=== PATIENT | male | born 1940 | race Caucasian/White ===

== ENCOUNTER 2017-10-27 11:31 | Observation (INO) | payer MEDICARE, OTHER ==
[2017-10-27 12:13] LABS: #Basophils 0.1 thou/uL (0.0-0.2); #Eosinphils 0.1 thou/uL (0.0-0.7); #Lymphocytes 2.4 thou/uL (1.20-3.40); #Monocytes 0.8 thou/uL (0.11-0.59); #Neutrophils 6.7 thou/uL (1.40-6.50); %Basophils 0.6 % (0.0-1.0); %Eosinophils 1.3 % (0.0-10.0); %Lymphocytes 23.8 % (21.0-51.0); %Monocytes 7.8 % (0.0-10.0); %Neutrophils 66.6 % (42.0-75.0); Hemoglobin 16.5 g/dL (14.0-18.0); Mean Corpuscular HGB CONC 32.2 g/dL (32.0-36.0); Mean Corpuscular Hemoglobin 30.1 pg (27.0-31.0); Mean Corpuscular Volume 93.3 fl (80.0-94.0); Mean Platelet Volume 7.1 fL (7.4-10.4); Platelet Count 239 thou/uL (130-400); RBC Distribution Width 12.7 % (11.5-14.5); Red Blood Cell (RBC) Count 5.49 mill/uL (4.70-6.10); White Blood Cell (WBC) Count 10.1 thou/uL (4.8-10.8)
[2017-10-27 12:34] LABS: Anion Gap 14 mmol/L (10-20); BUN (Urea Nitrogen) 21 mg/dL (8.4-25.7); Calc. Creatinine Clearance 51 mL/min (70-130); Calcium 9.8 mg/dL (7.8-10.44); Carbon Dioxide 25 mmol/L (23-31); Chloride 104 mmol/L (98-107); Estimated GFR-MDRD 47; Glucose 111 mg/dL (83-110); Potassium 4.3 mmol/L (3.5-5.1); Sodium 139 mmol/L (136-145)
[2017-10-27 16:10] VITALS: BMI 27.2
[2017-10-27] MEDS ORDERED: CEFAZOLIN/Water 2 GM/20 ML SYRINGE ONE (17:13)
[2017-10-27] MEDS ORDERED: Midazolam HCl 2 mg/2 ml Vial ONE (17:33)
[2017-10-27] MEDS ORDERED: Gentamicin 80 MG/2 ML VIAL ONE (17:33)
[2017-10-27] MEDS ORDERED: CEFAZOLIN 1 GM VIAL ONE (17:33)
[2017-10-27] MEDS ORDERED: Guaifenesin DM 100-10/5 ML UDCUP PO PRN (18:51)
[2017-10-27] MEDS: Ipratropium Oral Inhaler (200 INHALATIONS) INH SCH (18:58)
--- NOTE | 2017-10-27 19:44 | RAD ---
CHEST ONE VIEW 10/27/17 HISTORY: Post cardiac device placement. COMPARISON: None. FINDINGS: There are patchy opacities throughout the right upper lobe. No pneumothorax is appreciated. A dual le ad pacer is in place. IMPRESSION: Extensive patchy opacities in the right upper lobe. This may represent infection or aspiration. Camila hurtado recommended. POS: [facility]
--- NOTE | 2017-10-27 20:43 | RAD ---
CHEST ONE VIEW 10/27/17 HISTORY: Pacemaker not pacing. COMPARISON: Radiographs same day. There is extensive right upper lobe air space opacities. No pneumothorax. Cardiac silhouette and medi astinal contours are similar. Lung hypoinflation. IMPRESSION: Similar appearance of the right hemithorax consolidation. POS: [facility]
[2017-10-27] MEDS ORDERED: CEFAZOLIN/Water 2 GM/20 ML SYRINGE SLOW IVP SCH (23:45)
[2017-10-28] MEDS ORDERED: CEFAZOLIN 1 GM VIAL ONE (06:28)
[2017-10-28] MEDS ORDERED: Gentamicin 80 MG/2 ML VIAL ONE (06:28)
[2017-10-28] MEDS ORDERED: CEFAZOLIN/Water 2 GM/20 ML SYRINGE ONE (06:28)
[2017-10-28] MEDS ORDERED: Midazolam HCl 2 mg/2 ml Vial ONE (06:41)
[2017-10-28] MEDS ORDERED: Fentanyl 250 MCG/5 ML VIAL ONE (06:41)
[2017-10-28] MEDS: Ipratropium Oral Inhaler (200 INHALATIONS) INH SCH ×2 (07:06→13:01)
[2017-10-28] MEDS ORDERED: Acetaminophen/Codeine 30-300mg Tablet PO PRN (07:13)
--- NOTE | 2017-10-28 07:35 | CCL ---
PACEMAKER INSERTION: Date: 10/27/17 This is a 77-year-old patient with second degree heart block type 2 with severe bradycardia, symptoma tic, with severe fatigue and presyncopal episodes. He was advised to undergo dual-chamber pacemaker. This was performed on 10/27/2017. He was implanted with a chamber pacemaker from [employer]. There wer e no difficulties or complications encountered. The pacemaker set with the upper rate at 120 and lowe r rate was set at 60. He had an Advisa implanted, which is an MRI-compatible device, with two screw-i n leads, one in the atrium and one in the ventricle.
--- NOTE | 2017-10-28 07:39 | CCL ---
PROCEDURE NOTE: Date: 10/28/17 PROCEDURE: Pacemaker lead revision. INDICATION FOR PROCEDURE: This is a 77-year-old patient who underwent dual-chamber pacemaker insertion yesterday. He was found to have some dislodgement of the lead with failure to capture. He was advised to undergo pacemaker le ad revision. DESCRIPTION OF PROCEDURE: The patient was taken to the cardiac tree tapping laborer this morning. He was prepped and draped in sterile fash ion. The pocket was opened and the pacemaker was removed from the pocket with the leads. The ventricu lar lead was then removed and was then placed again into a different area in the right ventricle. He had good thresholds good sensing. Adequate slack was left in the lead and the lead was again attached to the pacemaker. The pacemaker pocket was irrigated using copious amounts of antibiotic solution. I t was then placed back in the pocket and the pocket was then closed in three layers without difficult ies or complications. IMPRESSION: Dislodgement of the right ventricular lead with repositioning of the lead without difficulty or compl ications.
--- NOTE | 2017-10-28 08:29 | DIS ---
DISCHARGE DIAGNOSIS: Sick sinus syndrome. PROCEDURE: Pacemaker implantation. Mr. Howard is a very pleasant 77-year-old gentleman who I saw as a new patient in the office. His main complaint was fatigue, weakness and shortness of breath. He was found to be in 2:1 block with heart rate in the 30s. He was subsequently admitted under observation, underwent pacemaker placement on 0 10/27/2017. His hospitalization was unremarkable. DISCHARGE MEDICATIONS: No changes from his home medications. Atenolol 25 mg q.a.m., amlodipine 10 m g q.a.m., pravastatin at bedtime, allopurinol 100 mg daily, fenofibrate 134 bedtime, aspirin q.a.m., allopurinol 100 mg daily CONDITION AT DISCHARGE: Stable.
[2017-10-28] MEDS ORDERED: Allopurinol 100 MG TAB PO SCH (09:00)
[2017-10-28] MEDS ORDERED: Amlodipine 5 MG TAB PO SCH (09:00)
[2017-10-28] MEDS ORDERED: Atenolol 50 MG TAB PO SCH (09:00)
--- NOTE | 2017-10-28 09:08 | RAD ---
CHEST 1 VIEW: HISTORY: Nonfunctioning pacemaker. Status post cardiac device placement. COMPARISON: 10/27/17. FINDINGS: Left-sided transvenous pacemaker with leads positioned in the right atrium and right ventricle. Norm al cardiac silhouette. Pulmonary vessels are normal. There are patchy interstitial opacities in the lung parenchyma. Right perihilar infiltrate is noted. There is no pneumothorax or significant pleu ral fluid. IMPRESSION: 1. Left-sided transvenous pacemaker as above. 2. Interstitial and alveolar opacities as above. Correlate for congestive heart failure. Superimpo sed pneumonia cannot be excluded. Continued surveillance. POS: [facility]
[2017-10-28 12:45] VITALS: BP 135/73; TEMP 98.7
--- NOTE | 2017-11-02 06:59 | EKG ---
Test Reason : STAT Blood Pressure : / mmHG Vent. Rate : 047 BPM Atrial Rate : 047 BPM P-R Int : 158 ms QRS Dur : 134 ms QT Int : 518 ms P-R-T Axes : 055 108 -11 degrees QTc Int : 458 ms Suspect unspecified pacemaker failure Atrial-sensed ventricular-paced rhythm with occasional Premature ventricular complexes Abnormal ECG Loss of capture Confirmed by DR. Asif VASQUES ([id number]) on 11/02/2017 6:59:23 AM Referred By: [facility]ERO Confirmed By:DR. Asif VASQUES
== END 2017-10-28 13:52 | disposition home or self-care (01) ==
LOC: 2SW 11:31
PROVIDERS: ADMIT Internal Medicine Cardiovascular Disease; ATTEND Internal Medicine Cardiovascular Disease
PROC: 0JH606Z Insertion of Pacemaker, Dual Chamber into Chest Subcutaneous Tissue and Fascia, Open Approach (ICD-10-PCS; principal; 2017-10-27)
PROC: 02H63JZ Insertion of Pacemaker Lead into Right Atrium, Percutaneous Approach (ICD-10-PCS; 2017-10-27)
PROC: 02HK3JZ Insertion of Pacemaker Lead into Right Ventricle, Percutaneous Approach (ICD-10-PCS; 2017-10-27)
PROC: 02WA0MZ Revision of Cardiac Lead in Heart, Open Approach (ICD-10-PCS; 2017-10-28)
DX: I44.1 Atrioventricular block, second degree (principal); F17.220 Nicotine dependence, chewing tobacco, uncomplicated; I10 Essential (primary) hypertension; E78.5 Hyperlipidemia, unspecified; I25.2 Old myocardial infarction; Z79.82 Long term (current) use of aspirin; Z79.899 Other long term (current) drug therapy; Z88.5 Allergy status to narcotic agent; Z98.52 Vasectomy status; Z90.89 Acquired absence of other organs; Z90.79 Acquired absence of other genital organ(s); Z98.890 Other specified postprocedural states; Z86.73 Personal history of transient ischemic attack (TIA), and cerebral infarction without residual deficits; Z85.46 Personal history of malignant neoplasm of prostate
CPT/HCPCS: 33208; 33226; 71045 ×2; 80048; 85025; 93005 ×2; 93798; 94640 ×2; C1785; C1898 ×2; G0378; G0379; 36415; 93010; 99152; A4216; J0690; J1580; J2250; J3010

== ENCOUNTER 2018-03-28 13:57 | Outpatient (CLI) | payer MEDICARE, OTHER ==
--- NOTE | 2018-03-28 15:53 | MRI ---
BRAIN MRI WITH AND WITHOUT CONTRAST: 03/28/18 HISTORY: Vertigo. Dizziness. COMPARISON: None. TECHNIQUE: Brain MRI is performed without and with intravenous gadolinium administration. Multisequential, multi planar imaging is performed. FINDINGS: No hemorrhage on the axial gradient echo sequence. No parenchymal mass, mass effect or midline shift. Age appropriate brain volume. Cortical solis-white matter differentiation is preserved with the excep tion of the left temporal lobe. In the left temporal lobe, there is combination of malacic and glioti c change due to remove insult. Additional T2 and FLAIR white matter hyperintensities due to chronic s mall vessel ischemic change of the white matter are noted. Calvarium has a normal T1 marrow signal intensity. Midline brain parenchymal structures are unremarka ble. Adequate aeration of the sinuses. Partial opacification of the right mastoid air cells. No pathologic enhancement of the brain parenchyma. IMPRESSION: 1. Age appropriate atrophy. 2. Absent restricted diffusion. No acute infarct. 3. No pathologic enhancement of the brain parenchyma. 4. Chronic small vessel ischemic changes of the white matter. POS: [facility]
== END 2018-03-28 13:58 | disposition home or self-care (01) ==
LOC: MRI 13:57
PROVIDERS: ATTEND Internal Medicine Cardiovascular Disease
DX: R42 Dizziness and giddiness (principal); I10 Essential (primary) hypertension
CPT/HCPCS: 36415; 70553; 80048

== ENCOUNTER 2019-11-21 07:23 | Outpatient (CLI) | payer MEDICARE, OTHER ==
--- NOTE | 2019-11-21 09:01 | ULT ---
RENAL ULTRASOUND WITH DUPLEX EVALUATION: INDICATION: History of hypertension and chronic kidney disease stage III. COMPARISON: None. TECHNIQUE: Salas scale, color Doppler, and spectral Doppler images were obtained in the kidneys, aorta, and bladd er. FINDINGS: The right kidney measured 11.8 x 5.7 x 5.9 cm. There is an ill-defined hypoechoic mass seen involvin g the anterior margin of the mid superior pole of the right kidney measuring 3.4 x 2.2 cm. There is a peripelvic cyst involving the inferior pole of the right kidney measuring 2.0 x 1.8 cm. Additional smaller cyst is seen involving the anterior margin of the right mid kidney measuring approximately 7 mm. No hydronephrosis is evident. Peak systolic velocity of the right renal artery was 86 cm/s with a right renal artery to aortic rati o of 0.61. Peak systolic velocity within the aorta was 142 cm/s. Visualized bladder was normal-appearing. Prevoid bladder volume was 88.62 cc. The left kidney measured 11.8 x 7.5 x 5.5 cm. No definite focal left renal lesion is evident. No hy dronephrosis is demonstrated. The peak systolic velocity in the left renal artery was 108 cm/s. The left renal artery aortic ratio is 0.76. Sampled resistive index within the right arcuate artery is 0.65 and on the left was 0.65. IMPRESSION: 1. No sonographic evidence to suggest renal artery stenosis. 2. Poorly defined hypoechoic lesion involving the anterior margin of the right mid kidney. This yane sures up to 3.4 x 2.2 cm. This may reflect a complex cyst. A noncontrast MRI of the abdomen may be helpful for improved characterization. There are simple cysts involving the right kidney as detailed above. 3. No focal left renal lesion demonstrated. POS: [facility]
== END 2019-11-21 07:24 | disposition home or self-care (01) ==
LOC: BICULT 07:23
PROVIDERS: ATTEND Internal Medicine Nephrology
DX: I25.119 Atherosclerotic heart disease of native coronary artery with unspecified angina pectoris (principal); N18.3 Chronic kidney disease, stage 3 (moderate); C44.91 Basal cell carcinoma of skin, unspecified; M19.90 Unspecified osteoarthritis, unspecified site; N20.0 Calculus of kidney; I12.9 Hypertensive chronic kidney disease with stage 1 through stage 4 chronic kidney disease, or unspecified chronic kidney disease; R73.03 Prediabetes; R56.9 Unspecified convulsions; Z95.0 Presence of cardiac pacemaker
CPT/HCPCS: 36415; 76770; 80069; 81003; 82570; 83036; 84156; 84443; 84550; 85027; 85652; 93975

== ENCOUNTER 2020-05-05 06:32 | Outpatient (CLI) | payer MEDICARE, OTHER ==
[2020-05-05 18:07] LABS: #Basophils 0.2 thou/uL (0.0-0.2); #Eosinphils 0.2 thou/uL (0.0-0.7); #Monocytes 0.9 thou/uL (0.11-0.59); #Neutrophils 4.6 thou/uL (1.40-6.50); %Basophils 1.8 % (0.0-1.0); %Eosinophils 2.2 % (0.0-10.0); %Lymphocytes 34.2 % (21.0-51.0); %Monocytes 10.1 % (0.0-10.0); %Neutrophils 51.7 % (42.0-75.0); Hemoglobin 16.4 g/dL (14.0-18.0); Mean Corpuscular HGB CONC 33.1 g/dL (32.0-36.0); Mean Corpuscular Volume 96.6 fL (78.0-98.0); Mean Platelet Volume 9.5 fL (7.4-10.4); Platelet Count 172 thou/uL (130-400); Red Blood Cell (RBC) Count 5.14 mill/uL (4.70-6.10); White Blood Cell (WBC) Count 8.8 thou/uL (4.8-10.8)
[2020-05-05 23:55] LABS: AST (SGOT) 40 U/L (5-34); Albumin 4.3 g/dL (3.4-4.8); Alkaline Phosphatase 53 U/L (40-110); Anion Gap 15 mmol/L (10-20); BUN (Urea Nitrogen) 27 mg/dL (8.4-25.7); Bilirubin, Total 0.3 mg/dL (0.2-1.2); Calc. Creatinine Clearance 0 mL/min (70-130); Carbon Dioxide 24 mmol/L (23-31); Chloride 107 mmol/L (98-107); Estimated GFR-MDRD 37; Globulin 2.8 g/dL (2.4-3.5); Glucose 104 mg/dL (83-110); Potassium 5.1 mmol/L (3.5-5.1); Protein, Total 7.1 g/dL (5.8-8.1); Sodium 141 mmol/L (136-145)
[2020-05-06] LABS: ALT (SGPT) 38 U/L (8-55); Calcium 9.7 mg/dL (7.8-10.44)
[2020-05-06 13:01] LABS: SARS-CoV-2 MS2 Positive; SARS-CoV-2 N Gene Negative; SARS-CoV-2 S Gene Negative; SARS-CoV-2 by NAA Not Detected (NotDetected); SARS-CoV-2 orf1ab Negative
== END 2020-05-05 06:33 | disposition home or self-care (01) ==
LOC: LABBT 06:32
PROVIDERS: ATTEND Internal Medicine Cardiovascular Disease
DX: Z01.812 Encounter for preprocedural laboratory examination (principal); Z20.828 Contact with and (suspected) exposure to other viral communicable diseases
CPT/HCPCS: 80053; 85025; U0003; 87635

== ENCOUNTER 2020-05-08 05:40 | Day surgery (SDC) | payer MEDICARE, OTHER ==
[2020-05-06 14:19] VITALS: BMI 30.4
[2020-05-08] MEDS ORDERED: Diazepam 5 MG TAB ONE (06:20)
[2020-05-08] MEDS ORDERED: Iopamidol 370 76% 100 ML VIAL ONE (09:26)
[2020-05-08] MEDS ORDERED: Lidocaine 1% (PF) 30 ML VIAL ONE (12:02)
[2020-05-08 12:21] LABS: Anion Gap 10 mmol/L (10-20); BUN (Urea Nitrogen) 26 mg/dL (8.4-25.7); Calc. Creatinine Clearance 51 mL/min (70-130); Calcium 9.9 mg/dL (7.8-10.44); Carbon Dioxide 27 mmol/L (23-31); Chloride 104 mmol/L (98-107); Estimated GFR-MDRD 43; Glucose 108 mg/dL (83-110); Potassium 5.3 mmol/L (3.5-5.1); Sodium 136 mmol/L (136-145)
[2020-05-08] MEDS ORDERED: Midazolam HCl 2 mg/2 ml Vial ONE (12:52)
[2020-05-08] MEDS ORDERED: Fentanyl 100 MCG/2 ML VIAL ONE (12:53)
== END 2020-05-08 18:00 | disposition home or self-care (01) ==
LOC: CCL 05:40
PROVIDERS: ATTEND Internal Medicine Cardiovascular Disease
PROC: 4A023N7 Measurement of Cardiac Sampling and Pressure, Left Heart, Percutaneous Approach (ICD-10-PCS; principal; 2020-05-08)
PROC: B2111ZZ Fluoroscopy of Multiple Coronary Arteries using Low Osmolar Contrast (ICD-10-PCS; 2020-05-08)
DX: I25.10 Atherosclerotic heart disease of native coronary artery without angina pectoris (principal); I25.82 Chronic total occlusion of coronary artery; I25.5 Ischemic cardiomyopathy; I11.0 Hypertensive heart disease with heart failure; I50.20 Unspecified systolic (congestive) heart failure; E78.5 Hyperlipidemia, unspecified; I25.2 Old myocardial infarction; F17.220 Nicotine dependence, chewing tobacco, uncomplicated; Z85.46 Personal history of malignant neoplasm of prostate; Z86.73 Personal history of transient ischemic attack (TIA), and cerebral infarction without residual deficits; Z79.82 Long term (current) use of aspirin; Z79.899 Other long term (current) drug therapy; Z88.5 Allergy status to narcotic agent; Z95.0 Presence of cardiac pacemaker
CPT/HCPCS: 36415; 76942; 80048; 93458; 99152; J1644; J2001; J2250; J3010; Q9967

== ENCOUNTER 2024-02-27 11:05 | Outpatient (CLI) | payer MEDICARE, OTHER | END 2024-02-27 11:06 | disposition home or self-care (01) | LOC: SCSRAD 11:05 | PROVIDERS: ATTEND Family Medicine | DX: R05.1 Acute cough (principal); J98.4 Other disorders of lung; I51.7 Cardiomegaly | CPT/HCPCS: 71046 ==

== ENCOUNTER 2024-02-27 17:01 | Emergency (ER) | payer MEDICARE, OTHER ==
[2024-02-27] MEDS ORDERED: LevoFLOXacin 750 mg/D5W 150 ml Premix Bag ONE (17:46)
[2024-02-27] MEDS ORDERED: Dexamethasone 10 MG/ML VIAL ONE (17:46)
[2024-02-27] MEDS ORDERED: Magnesium 2 GM/50 ML BAG (IN WATER) ONE (17:46)
[2024-02-27] MEDS ORDERED: Cefepime 2 GM VIAL ONE (17:47)
[2024-02-27 17:53] LABS: Actual Bicarbonate (HCO3v) 18.4 mEq/L (22-28); Analyzer IN Cardio ER; Base Excess -6.6 mEq/L (-2.0 to +3.0); Calcium, Ionized (venous) 1.15 mmol/L (1.16-1.32); Chloride (VBG) 101 mmol/L (98-106); Hematocrit-VBG 51 % (42.0-52.0); Hemoglobin (Hb) 17.4 g/dL (12.6-17.4); Potassium (VBG) 4.45 mmol/L (3.70-5.30); Sodium 138 mmol/L (133-146); pH (venous) 7.329 (7.32-7.43)
[2024-02-27 17:53] LABS: #Basophils 0.03 10x3/uL (0.0-0.2); #Eosinphils Less than 0.03 10x3/uL (0.0-0.7); %Basophils 0.2 % (0.0-1.0); %Eosinophils 0.1 % (0.0-10.0); %Lymphocytes 10.1 % (21.0-51.0); %Monocytes 6.5 % (0.0-10.0); %Neutrophils 82.3 % (42.0-75.0); Hematocrit 48.1 % (42.0-52.0); Hemoglobin 16.1 g/dL (14.0-18.0); Mean Corpuscular HGB CONC 33.5 g/dL (32.0-36.0); Mean Corpuscular Hemoglobin 31.8 pg (27.0-31.0); Mean Corpuscular Volume 94.9 fL (78.0-98.0); Mean Platelet Volume 11.9 fL (7.4-10.4); Platelet Count 188 10x3/uL (130-400); RBC Distribution Width 13.2 % (11.5-14.5); Red Blood Cell (RBC) Count 5.07 mill/uL (4.70-6.10)
[2024-02-27] MEDS ORDERED: Ipratropium/Albuterol 3 ML NEB ONE (18:00)
[2024-02-27] MEDS ORDERED: Albuterol 2.5 MG (0.5 mL) NEB ONE (18:01)
[2024-02-27 18:05] LABS: Actual Bicarbonate (HCO3a) 19.9 mEq/L (22-28); Analyzer IN Cardio ER; Base Excess (BEa) -5.4 mEq/L (-2.0 to +3.0); CO2 Tension 38.1 mmHg (35.0-45.0); Calcium, Ionized (arterial) 1.25 mmol/L (1.12-1.30); Carboxyhemoglobin (COHb) 1.2 gm% (0.0-3.0); Hematocrit-ABG 48 % (42.0-52.0); Hemoglobin (Hb) 16.4 g/dL (14.0-18.0); Potassium - ABG Lab 4.39 mmol/L (3.70-5.30); pH, Arterial 7.335 (7.35-7.45)
[2024-02-27 18:08] LABS: O2 Tension (PaO2), arterial 47.1 mmHg (> 60.0)
[2024-02-27 18:09] LABS: Puncture Site LRA
[2024-02-27] MEDS ORDERED: Vancomycin (BATCH) 2 GM in Premix 1 BAG IVPB SCH (18:15)
[2024-02-27 18:16] LABS: Troponin I 6.723 ng/mL (< 0.028)
[2024-02-27 18:17] LABS: ALT (SGPT) 31 U/L (8-55); AST (SGOT) 47 U/L (5-34); Albumin 3.1 g/dL (3.4-4.8); Alkaline Phosphatase 41 U/L (40-110); Anion Gap 19 mmol/L (10-20); BUN (Urea Nitrogen) 41 mg/dL (8.4-25.7); Bilirubin, Total 1.5 mg/dL (0.2-1.2); Calc. Creatinine Clearance 0 mL/min (70-130); Calcium 10.2 mg/dL (7.8-10.44); Carbon Dioxide 19 mmol/L (23-31); Chloride 104 mmol/L (98-107); Estimated GFR 26; Globulin 4.1 g/dL (2.4-3.5); Glucose 171 mg/dL (83-110); Lipase 97 U/L (8-78); Potassium 4.6 mmol/L (3.5-5.1); Protein, Total 7.2 g/dL (5.8-8.1); Sodium 137 mmol/L (136-145)
[2024-02-27] MEDS ORDERED: Rocuronium Bromide 10 MG/ML (10ML VIAL) ONE (18:19)
[2024-02-27] MEDS ORDERED: KETAMINE 100 MG/ML (5ML VIAL) ONE (18:19)
[2024-02-27 18:55] LABS: Influenza A by NAA Not Detected (NotDetected); Influenza B by NAA Not Detected (NotDetected); SARS-CoV-2 NAA Rapid Test Not Detected (NotDetected)
== END 2024-02-27 18:28 | disposition expired ==
LOC: ERS 17:01
DX: I46.9 Cardiac arrest, cause unspecified (principal); I10 Essential (primary) hypertension; E78.5 Hyperlipidemia, unspecified; F17.220 Nicotine dependence, chewing tobacco, uncomplicated; I48.91 Unspecified atrial fibrillation; Z79.01 Long term (current) use of anticoagulants; Z79.899 Other long term (current) drug therapy; R05.1 Acute cough; J98.4 Other disorders of lung; I51.7 Cardiomegaly
CPT/HCPCS: 0240U; 36600; 71045; 71046; 80053; 82805 ×2; 83605; 83690; 83880; 84484; 85025; 87040; 93005; 94640 ×2; 96365; 96368; 96375; 99285; J0692; J1100; J1956; J3370; J3475; 36415; J7611; J7620